=== PATIENT | female | born 1970 | race Caucasian/White ===

== ENCOUNTER 2016-08-22 10:23 | Emergency (ER) | payer OTHER, SELFPAY ==
[~2016-08-22 10:23] MED LIST: HYDROCODONE 5MG/5 MG PO; MOTRIN-DPS600 MG PO; TEMOVATE O.05%15 GM TP; TUMS DPS500 MG PO; ULTRAM DPS50 MG PO; ZOLOFT DPS100 MG PO
--- NOTE | 2016-09-01 06:57 | ER ---
ADMIT: 08/22/2016 RM/LOC: ER [facility] MR#: [id number] [id number] AMARJIT LOPEZ [address] [place] [address] Emergency Room Report SEX: F AGE: 45 : 1970 DATE: 08/22/2016 HISTORY OF PRESENT ILLNESS: The patient is a 45-year-old female, who has presented to the window with shortness of breath, difficulty breathing, and extremely anxious. She says it started last night when she had a medication for the first time is diazepam in a cream, and it was a vaginal medication. She threw the medication in the counter and said that shit it is what is causing my symptoms. REVIEW OF SYSTEMS: Otherwise negative. PAST MEDICAL HISTORY: Restless legs, multiple abdominal surgeries with inclusion of ovarian removal or salpingo-oophorectomy, enterocele repair, and hysterectomy. She has seen a provider in [place], who was specialty provider that gave her the medication for chronic pelvic pain. Her history is pretty involved, and she has had depression, diverticulosis, stress urinary incontinence, and chronic pelvic pain. PAST SURGICAL HISTORY: Right breast lumpectomy for benign tissue, EGD, arthroscopic right knee surgery, and sigmoid colectomy. FAMILY HISTORY: Positive for ovarian cancer. Brother with leukemia. Mother with hypertension. Father with CHF. 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 MEDICATIONS: 1. Sertraline. 2. Tums. 3. Ultram. ALLERGIES: SHE IS ALLERGIC TO NICKEL AND PERCOCET. PHYSICAL EXAMINATION: GENERAL: Alert and oriented, extremely anxious female. VITAL SIGNS: Blood pressure 146/88 with a heart rate of 67, respirations 20, and O2 sats 100%. LUNGS: She is hyperventilating. In essence, breath sounds are normal. No pleuritic chest pain. NECK: Supple. CVS: Regular in rate and rhythm. ABDOMEN: Nontender. SKIN: Good color and turgor. No rash present. EXTREMITIES: Nontender. NEURO: Anxious and oriented x4. We started a bag of fluids. I did give her some Benadryl prior to the IV. We gave her some Benadryl 50 mg IM, which apparently helped her a bit. We did give her some fluid, found out that her medication was used at 10 o'clock last ADMIT: 08/22/2016 RM/LOC: ER [facility] MR#: [id number] [id number] LOPEZAMARJIT DAN [facility] [place] [address] Emergency Room Report SEX: F AGE: 45 : 1970 night, and I consulted with Dr. Ho. We do not believe that this reaction to the diazepam vaginal suppository will be something that I can stop at this time because of the half-life, but I went ahead and started the fluids and with the Benadryl, she did get some relief. CLINICAL IMPRESSION: Adverse drug reaction. We did get some information from Dr. Vuong's office and was able to discharge the patient after couple bags of fluids and several trips to the bathroom for voiding urine. She is encouraged to follow up with her primary provider, stop the medication she was using as is the newest medication she has had, put down that she is sensitive to benzos and narcotics including opioids. Follow up with Carolann Meier, or Dr. Villalpando in [place], and I advised that she goes back to the Ultram. Apparently, the doctor in [place] did not want to have her do Ultram and wanted to get her weaned off it, but the patient does not want to have the same reaction she had to this medication, she wants to go back to her Ultram, which even though was a low dose of medication, it did give her the relief of pain that she was seeking for. JOSELITO Ruffin / Tuan Ho MD / carl JOB #: [id number] CC: Tuan Ho MD, Attending Physician Jacinto Rolle MD, Family Physician
== END 2016-08-22 14:55 | disposition home or self-care (01) ==
LOC: ER 10:23
DX: R06.02 Shortness of breath (principal); T42.4X5A Adverse effect of benzodiazepines, initial encounter; Z90.710 Acquired absence of both cervix and uterus